=== PATIENT | female | born 1995 | race African-American/Black ===

== ENCOUNTER 2016-12-31 19:54 | Emergency (ER) | payer OTHER ==
[~2016-12-31] VITALS: Ht 154.9 cm; Wt 47.5 kg
[~2016-12-31 19:54] MED LIST: NOHOMEMEDS; ZANTAC15 MG/ML PO
[2016-12-31 21:26] VITALS: BP 132/86
== END 2016-12-31 21:27 | disposition home or self-care (01) ==
LOC: EME 19:54
DX: R07.89 Other chest pain (principal); M54.2 Cervicalgia; R06.02 Shortness of breath
CPT/HCPCS: 71020; 84702; 93005; 99281; 99283

== ENCOUNTER 2017-02-19 19:22 | Emergency (ER) | payer OTHER ==
[~2017-02-19] VITALS: Ht 154.9 cm; Wt 46.9 kg
[2017-02-19] MEDS ORDERED: CORTIZONE-10 PL57 GM TP (21:09)
[2017-02-19 21:13] VITALS: BP 128/75
== END 2017-02-19 21:14 | disposition home or self-care (01) ==
LOC: EME 19:22
DX: L25.9 Unspecified contact dermatitis, unspecified cause (principal); Z91.048 Other nonmedicinal substance allergy status
CPT/HCPCS: 99281; 99283

== ENCOUNTER 2017-04-21 19:19 | Emergency (ER) | payer OTHER ==
[~2017-04-21] VITALS: Ht 154.9 cm; Wt 47.6 kg
[~2017-04-21 19:19] MED LIST changes: +CORTIZONE-10 PL57 GM TP
[2017-04-21 20:25] LABS: EOSINOPHIL (%) 0.6 % (0-5); HEMATOCRIT 39.7 % (36.0-46.0); IMMATURE GRANULOCYTE (%) 0.3 % (0.0-0.7); INSTRUMENT ABS NEUTROPHIL CT 5.8 K/uL; LYMPHOCYTE COUNT 0.9 K/uL (1.0-2.8); MCHC 32.2 G/DL (30.0-36.0); MCV 77.4 FL (83-99); MEAN PLAT.VOLUME 10.9 uM^3 (9.5-12.4); MONOCYTE (%) 4.8 % (3-12); MONOCYTE COUNT 0.3 K/uL (0-0.8); NEUTROPHIL (%) 81.6 % (45-76); NEUTROPHIL COUNT 5.8 K/uL (1.8-6.4); PLATELET COUNT 223 K/uL (156-360); RBC DIS.WIDTH-SD 39.1 % (39-53); RED BLOOD COUNT 5.13 M/uL (3.80-5.20); WHITE BLOOD COUNT 7.1 K/uL (4.1-10.2)
[2017-04-21 20:33] LABS: CHLORIDE 108 mEq/L (99-109); POTASSIUM 3.4 mEq/L (3.7-5.4)
[2017-04-21 20:34] LABS: SODIUM 137 mEq/L (136-147)
[2017-04-21 20:36] LABS: GLUCOSE 85 mg/dL (70-99)
[2017-04-21 20:37] LABS: ANION GAP 8 MEQ/L (2-14)
[2017-04-21 20:38] LABS: TOTAL BILIRUBIN 0.7 mg/dL (0.0-1.0)
[2017-04-21 20:39] LABS: ALKALINE PHOSPHATASE 44 IU/L (3-129); GFR ESTIMATE (CALCULATED) > 59 mL/min/
[2017-04-21 20:41] LABS: UREA NITROGEN (BUN) 9 mg/dL (9-23)
[2017-04-21 20:48] LABS: QUANTITATIVE HCG < 4.0 MIU/ML
[2017-04-21 21:33] LABS: ADD MIUA? YES; BILIRUBIN NEGATIVE; BLOOD MODERATE; COLOR YELLOW ((YELLOW)); GLUCOSE (STRIP) NEGATIVE; KETONES 20; LEUKOCYTES NEGATIVE; NITRITE NEGATIVE; PROTEIN (STRIP) NEGATIVE; SPECIFIC GRAVITY 1.015 (1.000-1.030); UROBILINOGEN 0.2 MG/DL (0.2-1.0)
[2017-04-21 21:39] LABS: BACTERIA RARE /HPF; EPITHELIAL CELLS 1+ /HPF; HYALINE CASTS 0-5 /LPF; MUCUS TRACE /LPF; RED BLOOD CELLS 0-5 /HPF (0-5); UCUL ADDED? NO
[2017-04-21 22:43] VITALS: BP 115/86
== END 2017-04-21 22:44 | disposition home or self-care (01) ==
LOC: EME → EDBD 19:19 → EME 22:44
PROVIDERS: Emergency Medicine
DX: R55 Syncope and collapse (principal)
CPT/HCPCS: 71020; 80053; 81003; 84702; 85025; 93005; 99281; 99285; J7030